=== PATIENT | male | born 1955 | race Caucasian/White ===

== ENCOUNTER 2018-02-15 12:20 | Emergency (ER) | payer BC ==
[~2018-02-15] VITALS: Ht 167.6 cm; Wt 68.0 kg
[2018-02-15] MEDS: LIDOCAINE HCL 1% 20 ML VIAL IJ ONE ×2 (12:46→13:03)
[2018-02-15] MEDS ORDERED: NEOMY/BACITRA/POLYMYXIN B OINT UD PACKET TP ONE ×2 (13:00→13:01)
--- NOTE | 2018-02-15 13:00 | NUR ---
pt was evaluated by dr zamora. pt was d/c to home. d/c instructions given to the pt.
[2018-02-15 13:02] VITALS: BP 146/78
== END 2018-02-15 13:07 | disposition home or self-care (01) ==
LOC: ER 12:20
DX: S90.422A Blister (nonthermal), left great toe, initial encounter (principal); L08.9 Local infection of the skin and subcutaneous tissue, unspecified; L03.032 Cellulitis of left toe; X58.XXXA Exposure to other specified factors, initial encounter; Y93.89 Activity, other specified; Y92.89 Other specified places as the place of occurrence of the external cause; Y99.8 Other external cause status
CPT/HCPCS: A4663; J3490

== ENCOUNTER 2020-05-02 14:51 | Emergency (ER) | payer BC ==
[~2020-05-02] VITALS: Ht 170.2 cm; Wt 68.0 kg
[2020-05-02] MEDS ORDERED: ONDANSETRON 4 MG/2 ML VIAL IV ONE (15:15)
[2020-05-02] MEDS ORDERED: MECLIZINE HCL 25 MG TABLET PO ONE ×2 (15:15→16:15)
[2020-05-02] MEDS ORDERED: HYDROCORTISONE PO ×2 (15:19)
[2020-05-02] MEDS ORDERED: MECLIZINE HCL 25 MG TABLET ONE ×2 (15:36→16:24)
[2020-05-02] MEDS ORDERED: ONDANSETRON 4 MG/2 ML VIAL ONE (15:36)
[2020-05-02 15:39] LABS: BASOPHILS % (AUTO) 0.5 % (0.0-2.0); EOSINOPHILS # (AUTO) 0.2 K/uL (0.0-0.7); EOSINOPHILS % (AUTO) 3.3 % (0.0-7.0); HEMATOCRIT 38.6 % (36.7-47.1); HEMOGLOBIN 13.1 g/dL (12.5-16.3); LYMPHOCYTES # (AUTO) 1.2 K/uL (20.0-40.0); LYMPHOCYTES % (AUTO) 25.2 % (20.5-51.5); MEAN CORPUSCULAR HEMOGLOBIN 30.8 uug (23.8-33.4); MEAN CORPUSCULAR HGB CONC 34 g/dL (32.5-36.3); MEAN CORPUSCULAR VOLUME 90.6 fL (73.0-96.2); MONOCYTES # (AUTO) 0.5 K/uL (2.0-10.0); NEUTROPHILS # (AUTO) 2.9 K/uL (1.8-8.9); PLATELET COUNT (AUTO) 212 K/uL (152-348); RED BLOOD CELL COUNT(AUTO) 4.27 MIL/uL (4.06-5.63); WHITE BLOOD COUNT (AUTO) 4.8 K/uL (3.6-10.2)
--- NOTE | 2020-05-02 15:40 | NUR ---
PT IS IN ROOM #1B. DR ALEXANDRE EVALUATED THE PT.
[2020-05-02 15:52] LABS: POTASSIUM 3.9 mmol/L (3.5-5.1)
[2020-05-02 16:03] LABS: BILIRUBIN,DIRECT 0.1 mg/dL (0.0-0.2); BILIRUBIN,TOTAL 0.3 mg/dL (0.2-1.0); TOTAL PROTEIN, SERUM 7.2 g/dL (6.4-8.2)
[2020-05-02] MEDS ORDERED: DIAZEPAM 2 MG TABLET PO ONE (16:15)
[2020-05-02] MEDS ORDERED: DIAZEPAM 5 MG TABLET ONE (16:23)
--- NOTE | 2020-05-02 17:26 | NUR ---
PT WAS D/C'd TO HOME AFTER DR ALEXANDRE RE-EVALUATION. D/C INSTRUCTIONS GIVEN TO THE PT BY DR ALEXANDRE.
[2020-05-02 17:43] VITALS: BP 146/70
== END 2020-05-02 17:48 | disposition home or self-care (01) ==
LOC: ER 14:51
DX: R42 Dizziness and giddiness (principal); R00.1 Bradycardia, unspecified; R03.0 Elevated blood-pressure reading, without diagnosis of hypertension; R11.0 Nausea; I67.2 Cerebral atherosclerosis
CPT/HCPCS: 36415; 70450; 71045; 80048; 80076; 82962; 84484; 85025; 93005; 96374; 99285; J2405; 70030-TC; A4663; J8597